=== PATIENT | male | born 1930 | race Caucasian/White ===

== ENCOUNTER → 2016-09-14 | Day surgery (SDC) | payer OTHER, MEDICARE ==
[~2016-09-14] VITALS: Ht 182.9 cm; Wt 88.0 kg
[~2016-09-14] MED LIST: ALLOPURINOL100 M1 PO; ASPIRIN81 M1 PO; CIPRO500 M1 PO; DAILY MULTIPLE1 EACH PO; FINASTERIDE5 MG PO; FLOMAX0.4 M1 PO; HYDREA500 M1 PO; KEY-E400 IU PO; LOPRESSOR 25MG25 MG PO; PERCOCET 5-3251 EACH PO; SIMVASTATIN80 M1 PO; TYLENOL325 M1 PO; ZOCOR10 M1 PO; ZOLPIDEM TARTRAT5 M1 PO; [UNRECOGNIZED DRUG - OTHER]
--- NOTE | 2016-09-14 14:41 | Operative Report ---
Operative/Inv Procedure Report Surgery Date: 09/14/16 Name of Procedure: right renal ESWL/fluoroscopy Pre-Operative Diagnosis: right renal stone with colic Post-Operative Diagnosis: same Estimated Blood Loss: none Surgeon/Room Service Waiter/Waitress: LISHA SAWYER MD Anesthesia: moderate sedation Complications: none Operative/Procedure Note Note: The patient was taken to the operating room placed on the OR table in supine position. Timeout was performed, with the patient awake, in order to confirm correct procedure, laterality, anesthesia, and other pertinent perioperative information. After adequate anesthesia and antibiotics, the patient was then positioned over the ESWL table cutout overlying the treatment dome. Fluoroscopy , using AP and oblique views, as well as renal ultrasound, or performed in order to locate the stone. The position of the stone was optimized and positioned in the middle of the ESWL crosshairs. The stone was measured to be approximately 7 mm in size. ESWL was initiated at low power, and after 200 shockwaves delivered , noting the patient's tolerance to the shockwaves, the power was increased to maximum. At the end of 2500 shockwaves, fluoroscopy confirms the change in consistency of the stone, indicating shattering of the stone. The patient tolerated this procedure well and was taken to the in satisfactory condition. Discharge Disposition: Same Day Admissions CC: LISHA SAWYER MD
== END ==
LOC: STS 02:14
DX: N20.0 Calculus of kidney (principal); Z87.442 Personal history of urinary calculi; I10 Essential (primary) hypertension; I25.2 Old myocardial infarction